=== PATIENT | female | born 1940 | race Caucasian/White ===

== ENCOUNTER → 2016-07-07 | Day surgery (SDC) | payer OTHER ==
[2016-06-23 13:24] VITALS: Ht 168.9 cm; Wt 63.6 kg
[~2016-07-07] VITALS: Ht 168.9 cm; Wt 63.6 kg
[~2016-07-07] MED LIST: ATOR10TA82 PO; EST5 PO; MEDR2.5T PO; MULT-506 PO; MXZC25 PO; PROPOFOL IV EMULSION 10 MG/ML 20 ML VIAL IV ONE; SODIUM CHLORIDE 0.9% 500ML 500 ML IV ONE
--- NOTE | 2016-07-07 14:00 | Endo History and Physical ---
History & Physical Date of Service: Jul 07, 2016. Chief Complaint: Family hx of colon CA - Father and niece Referring Physician: Dr Mehta History of Present Illness 76 yo CF who presents for colonoscopy secondary to family history of colon cancer. Past Surgical History Hx Cardiac Surgery: No Hx Internal Defibrillator: No Hx Pacemaker: No Hx Abdominal Surgery: Yes (TUBAL LIGATION) Hx of Implantable Prosthesis: No Hx Post-Op Nausea and Vomiting: No Hx Cancer Surgery: No Hx Thoracic Surgery: No Hx Orthopedic: No Hx Urinary Tract Surgery: No Family History Colon CA Social History Smoking Status: Former Smoker Hx Substance Use: No Hx Alcohol Use: No Allergies Coded Allergies: Codeine (Verified Allergy, Intermediate, HIVES, 07/07/16) Current Medications Reported Home Medications Medications Dose Route/Sig Max Daily Dose Days Date Category Multivitamin (Multivitamins) Tab 1 Tab PO QAM 06/23/16 Reported Lipitor (Atorvastatin Calcium) 10 Mg Tab 10 Mg PO HS 06/23/16 Reported Provera (Medroxyprogesterone Acetate) 2.5 Mg Tab 2.5 Mg PO QPM 06/23/16 Reported Triamterene/Hctz 37.5-25MG Tab (Triamterene/Hctz) 1 Tab Tab 1 Tab PO QAM 08/15/14 Reported Estradiol 0.5 Mg Tab 0.5 Mg PO QPM 08/15/14 Reported Vital Signs Weight (Kilograms): 63.64 Height (Feet): 5 Height (Inches): 6.5 Date Time Temp Pulse Resp B/P Pulse Ox O2 Delivery O2 Flow Rate FiO2 07/07/16 13:33 36.5 77 20 145/89 98 Room Air Physical Exam General Appearance: WD/WN, no apparent distress Respiratory/Chest: Auscultation: breath sounds normal Cardiovascular: Heart Auscultation: RRR Abdomen: Bowel Sounds: normal Inspection & Palpation: soft, non-distended, no tenderness, guarding & rebound Assessment and Plan Assessment: 76 yo CF who presents for colonoscopy secondary to family history of colon cancer. Plan: Proceed with colonoscopy.
--- NOTE | 2016-07-07 15:26 | Discharge Instructions ---
Endoscopy Patient Instructions Date / Procedure(s) Performed Jul 07, 2016. Colonoscopy Allergy Information Coded Allergies: Codeine (Verified Allergy, Intermediate, HIVES, 07/07/16) Discharge Date / Findings Jul 07, 2016. Diverticulosis Internal hemorrhoids Medication Instructions Stopped Medication(s): MULTIVITIAM OK to resume all medications today as prescribed Reported Home Medications Medications Dose Route/Sig Max Daily Dose Days Date Category Multivitamin (Multivitamins) Tab 1 Tab PO QAM 06/23/16 Reported Lipitor (Atorvastatin Calcium) 10 Mg Tab 10 Mg PO HS 06/23/16 Reported Provera (Medroxyprogesterone Acetate) 2.5 Mg Tab 2.5 Mg PO QPM 06/23/16 Reported Triamterene/Hctz 37.5-25MG Tab (Triamterene/Hctz) 1 Tab Tab 1 Tab PO QAM 08/15/14 Reported Estradiol 0.5 Mg Tab 0.5 Mg PO QPM 08/15/14 Reported Provider Instructions Activity Restrictions - No exercising or heavy lifting for 24 hours. - Do not drink alcohol the day of the procedure. - Do not drive a car or operate machinery until the day after the procedure. - Do not make any important decisions or sign important papers in 24 hours after the procedure. Following Day: - Return to full activity which may include returning to work/school. Diet Start your diet with liquids and light foods (jello, soup, juice, toast). Then eat your usual diet if not nauseated. Treatment For Common After Affects For mild abdominal pain, bloating, or excessive gas: - Rest - Eat lightly - Lie on right side Follow-Up Information Follow-up with Dr Mehta as scheduled Anesthesia Information What You Should Know You have had a procedure that required some medicine to reduce anxiety and discomfort. This treatment is called moderate sedation. After receiving the treatment, you may be sleepy, but you will be able to breathe on your own. The effects of the treatment may last for several hours. Follow these instructions along with Activity/Diet recommendations noted above: * Do NOT do anything where dizziness or clumsiness would be dangerous. * Rest quietly at home today, then you can be up and about tomorrow. * Have a responsible person stay with you the rest of today. * You may have had an I.V. today. If so, you may take the dressing off later today. Recommendations Call your doctor if: * Trouble breathing * Continuous vomiting for more than 24 hours * Temperature above 101 degrees * Severe abdominal pain or bloating * Pain not relieved by pain medicine ordered * There is increased drainage or redness from any incision * A large amount of rectal bleeding greater than 2-3 tablespoons. (If you had a polyp/s removed or have hemorrhoids, a small amount of blood - from the rectum is to be expected.) * You have any unanswered questions or concerns. IN THE EVENT OF A SERIOUS EMERGENCY, GO TO THE NEAREST EMERGENCY ROOM Your discharge instructions were prepared by provider Jose Alejandro Chapin. Patient Instructions Signature Page Lillian Zavala Patient (or Guardian) Signature/Date: I have read and understand the instructions given to me by my caregivers. Caregiver/RN/Doctor Signature/Date: The above-named patient and/or guardian has received patient instructions on this date. + Original Patient Signature Page (only) stays with chart. Please make copy for patient.
--- NOTE | 2016-07-07 15:31 | GI REPORT ---
Procedure Date: 07/07/2016 2:21 PM Procedure: Colonoscopy Indications: Family history of colon cancer in a first-degree relative Medicines: Monitored Anesthesia Care Complications: No immediate complications. Estimated Blood Loss: Estimated blood loss: none. Procedure: Pre-Anesthesia Assessment: - Prior to the procedure, a History and Physical was performed, and patient medications and allergies were reviewed. The patient's tolerance of previous anesthesia was also reviewed. The risks and benefits of the procedure and the sedation options and risks were discussed with the patient. All questions were answered, and informed consent was obtained. Prior Anticoagulants: The patient has taken no previous anticoagulant or antiplatelet agents. ASA Grade Assessment: II - A patient with mild systemic disease. After reviewing the risks and benefits, the patient was deemed in satisfactory condition to undergo the procedure. After I obtained informed consent, the scope was passed under direct vision. Throughout the procedure, the patient's blood pressure, pulse, and oxygen saturations were monitored continuously. The scope was introduced through the anus and advanced to the terminal ileum. The colonoscopy was performed without difficulty. The patient tolerated the procedure well. The quality of the bowel preparation was good. The terminal ileum, ileocecal valve, appendiceal orifice, and rectum were photographed. Findings: Multiple small-mouthed diverticula were found in the sigmoid colon. Non-bleeding internal hemorrhoids were found during retroflexion. The hemorrhoids were small. Impression: - Diverticulosis in the sigmoid colon. - Non-bleeding internal hemorrhoids. - No specimens collected. Recommendation: - Resume previous diet. - Continue present medications. - No repeat colonoscopy due to age and the absence of advanced adenomas. - Return to primary care physician as previously scheduled. Jose Alejandro Chapin, 07/07/2016 3:31:23 PM This report has been signed electronically. Note Initiated On: 07/07/2016 2:21 PM I attest to the content of the Intraoperative Record and orders documented therein, exceptions below
[2016-07-07 15:42] VITALS: BP 121/84; PULSE 75; O2SAT 96
--- NOTE | 2016-07-07 15:43 | Anesthesiology Progress Note ---
Anesthesia Post Op Note Date & Time Jul 07, 2016 at 15:42 Vital Signs Vital Signs Past 12 Hours Date Time Temp Pulse Resp B/P Pulse Ox O2 Delivery O2 Flow Rate FiO2 07/07/16 15:27 70 16 123/69 95 Room Air 07/07/16 15:12 76 16 102/84 94 Room Air 07/07/16 13:33 36.5 77 20 145/89 98 Room Air Notes Mental Status: alert / awake / arousable, participated in evaluation Pt Amnestic to Procedure: Yes Nausea / Vomiting: adequately controlled Pain: adequately controlled Airway Patency, RR, SpO2: stable & adequate BP & HR: stable & adequate Hydration State: stable & adequate Anesthetic Complications: no major complications apparent
== END | disposition home or self-care (01) ==
LOC: C.GI 12:55
PROVIDERS: ATTEND Internal Medicine
DX: Z12.11 Encounter for screening for malignant neoplasm of colon (principal); K57.30 Diverticulosis of large intestine without perforation or abscess without bleeding; K64.8 Other hemorrhoids; Z80.0 Family history of malignant neoplasm of digestive organs

== ENCOUNTER → 2016-10-25 | Outpatient (CLI) | payer OTHER ==
[~2016-10-25] MED LIST changes: -ATOR10TA82 PO; +ATOR10TA88 PO; -PROPOFOL IV EMULSION 10 MG/ML 20 ML VIAL IV ONE; -SODIUM CHLORIDE 0.9% 500ML 500 ML IV ONE
[2016-10-25 12:45] LABS: BLOOD UREA NITROGEN 15 mg/dl (7-18); CREATININE 0.86 mg/dl (0.60-1.20)
== END | disposition home or self-care (01) ==
LOC: C.LABBFT 07:39
PROVIDERS: ATTEND Nurse Practitioner
DX: K04.7 Periapical abscess without sinus (principal)

== ENCOUNTER → 2017-03-23 | Outpatient (CLI) | payer OTHER ==
[~2017-03-23] MED LIST changes: +ATOR10TA82 PO; -ATOR10TA88 PO
== END | disposition home or self-care (01) ==
LOC: C.PAPS 08:58
PROVIDERS: ATTEND Obstetrics & Gynecology
DX: Z12.4 Encounter for screening for malignant neoplasm of cervix (principal); Z78.0 Asymptomatic menopausal state

== ENCOUNTER → 2017-03-31 | Outpatient (CLI) | payer OTHER ==
--- NOTE | 2017-04-07 07:48 | MAMMOGRAPHY REPORT ---
BILATERAL DIGITAL DIAGNOSTIC MAMMOGRAM TOMOSYNTHESIS WITH CAD AND TARGETED RIGHT ULTRASOUND: 03/31/20 17 CLINICAL HISTORY: The patient reported that her doctor felt a palpable lump in the right breast alana g a clinical exam. TECHNIQUE: Breast tomosynthesis in addition to standard 2D mammography was performed. Current study was also evaluated with a Computer Aided Detection (CAD) system. Bilateral CC and MLO 2-D and tomosy nthesis images were obtained. COMPARISON: Comparison is made to exams dated: 02/01/2013 mammogram and 08/31/2010 mammogram - [facility]. BREAST COMPOSITION: The tissue of both breasts is heterogeneously dense, which may obscure small mas ses. FINDINGS: A triangle marker maravilla the site of the palpable lump in the right central/12:00 breast. At the site of the palpable lump there is an ill-defined focal asymmetry with associated coarse heter ogeneous calcifications. The area is ill-defined and therefore difficult to measure but measures at least 3.6 x 2.8 cm on the cc view. The remainder of both breasts demonstrate no suspicious masses, calcifications, or areas of back end architect ural distortion. Targeted ultrasound was performed of the area of the palpable lump pointed out by the patient, in the right breast at 12:00. In the right breast at 12:00, extending from the periareolar breast to 3 cm from the nipple, there is an ill-defined hypoechoic mass with non-circumscribed margins. The area is ill-defined and therefore difficult to measure but measures at least 2.4 x 1.7 x 3.9 cm. This corre sponds with the mammographic asymmetry and associated calcifications and is highly suspicious. Targeted ultrasound was performed of the right axilla. Multiple morphologically normal right axillar y lymph nodes are seen which contain normal fatty lexus and thin peripheral cortices. There is a roun d hypoechoic 3 x 3 mm mass within the lower right axilla, which does not contain a fatty hilum and is indeterminate for a hoda metastasis. IMPRESSION: ACR BI-RADS CATEGORY 5: HIGHLY SUGGESTIVE OF MALIGNANCY, TARGETED ULTRASOUND ACR BI-RADS CATEGORY 5: HIGHLY SUGGESTIVE OF MALIGNANCY 1. At the site of the palpable lump in the right 12:00 breast, there is an ill-defined focal asymmet ry with associated coarse heterogeneous calcifications mammographically which measures up to 3.6 x 2. 8 cm. A corresponding ill-defined hypoechoic mass is seen on ultrasound. Findings are highly suspic ious and ultrasound-guided core needle biopsy is recommended for further evaluation. 2. Morphologically abnormal lymph node in the right axillary region measuring 3 mm. Recommend ultra sound-guided biopsy for further evaluation. 3. No mammographic evidence of malignancy in the left breast. A phone call was made to the physician's office to confirm faxed results were received. The patient has been verbally notified of the results. She tentatively scheduled the biopsies before leaving the department. The patient should discontinue her baby aspirin for 5-7 days prior to the procedure. Approximately 10% of breast cancers are not detected with mammography. A negative mammographic report should not delay biopsy if a clinically suggestive mass is present. Lindsey Cope M.D. ah/:03/31/2017 12:01:48 Voting Machine Repairer: Joseph CAMACHO(Darshan)(M), [facility] letter sent: Abnormal 4/5 BI-RADS Code: ACR BI-RADS Category 5: Highly Suggestive Of Malignancy Ultrasound BI-RADS: ACR BI-RAD S Category 5: Highly Suggestive Of Malignancy
== END | disposition home or self-care (01) ==
LOC: C.MAMM 10:57
PROVIDERS: ATTEND Obstetrics & Gynecology
DX: N63.12 Unspecified lump in the right breast, upper inner quadrant (principal); N64.89 Other specified disorders of breast; R92.1 Mammographic calcification found on diagnostic imaging of breast

== ENCOUNTER → 2017-04-07 | Outpatient (CLI) | payer OTHER ==
--- NOTE | 2017-04-07 11:04 | Discharge Instructions ---
Discharge Instructions Procedure Procedure Date: Apr 07, 2017. Reason for visit: Right Mass, R Axillary Lymph. Discharge Discharge Date: Apr 07, 2017. Discharge Diagnosis: status post breast biopsy Instructions Activity Recommendations: Additional Limitations (see below) Return to School/Work: no limitations Recommended Home Diet: No Limitations Provider Instructions: ACTIVITY RECOMMENDATIONS: * No lifting, pushing, pulling or exercising the affected side for three days. RETURN TO SCHOOL/WORK: * You may return to work/school after the procedure, but do not perform any strenuous activities for 24 to 48 hours. MEDICATIONS: * Tylenol (two 325 mg) every four to six hours if needed for mild pain (if not allergic to Tylenol). DIET: * Resume previous diet. SPECIAL CARE INSTRUCTIONS: * Keep biopsy site dry for 24 hours. May shower after 24 hours, but do not soak (bathe) incision. * May remove Tegaderm (plastic patch) tomorrow AFTER showering. * Leave the steri-strips on for one week. Allow the steri-strips to fall off by themselves. If not off after one week, you may remove them. You may place a Bandaid crosswise over the strips, if desired. * Apply ice 10 minutes on and 10 minutes off as needed. * Wear a bra at bedtime to sleep more comfortably for 2-3 days. * Your referring physician should have the results after approximately 5 to 7 business days. * Call for unusual bleeding, fever, drainage, etc or if you have any questions call during normal business hours or after hours call Dr Cope, . FOLLOW UP VISIT: Follow-up with Referring Physician as scheduled. Allergies Coded Allergies: Codeine (Verified Allergy, Intermediate, HIVES, 07/07/16) [facility] Recommendations: Call your doctor if: * Temperature above 101 degrees * Pain not relieved by pain medicine ordered * There is increased drainage or redness from any incision * You have any unanswered questions or concerns. Your Doctors Instructions noted above were prepared by provider Lindsey Cope. Patient Signature Section: Patient Instructions Signature Page Lillian Zavala Patient (or Guardian) Signature/Date: I have read and understand the instructions given to me by my caregivers. Caregiver/RN/Doctor Signature/Date: The above-named patient and/or guardian has received patient instructions on this date. + Original Patient Signature Page (only) stays with chart. Please make copy for patient.
--- NOTE | 2017-04-07 14:34 | MAMMOGRAPHY REPORT ---
ULTRASOUND GUIDED BIOPSY RIGHT BREAST: 04/07/2017 CLINICAL HISTORY: Morphologically abnormal right axillary lymph node. PATIENT CONSENT: The procedure, risks and benefits were discussed with the patient and informed writt en consent was obtained. A timeout was performed immediately prior to the procedure. PROCEDURE DESCRIPTION: With ultrasound guidance, aseptic technique, and lidocaine as the local anesth etic (1% lidocaine to anesthetize the skin and 1% lidocaine with epinephrine to anesthetize the deepe r tissues), the right axillary lymph node of concern was sampled 3 times with a 14-gauge achieve biop sy needle. Immediately thereafter, with ultrasound guidance, aseptic technique, and lidocaine as t he local anesthetic, a metallic localizer clip (wing-shaped) was placed at the biopsy site. Direct p ressure was applied to the site immediately post procedure and hemostasis was achieved. Postprocedur e unilateral mammograms were performed to confirm clip placement. The patient tolerated the procedure without complication. She was given wound care instructions. The specimens were sent to pathology f or analysis. COMPARISON: Comparison is made to exams dated: 04/07/2017 mammogram, 04/07/2017 ultrasound biopsy, 03/31 mammogram, 03/31/2017 ultrasound, and 02/01/2013 mammogram - [facility]. IMPRESSION: ULTRASOUND GUIDED BIOPSY Ultrasound guided core needle biopsy of the right axillary lymph node, with clip placement. The anup ent will receive pathology results from her referring provider. Lindsey Cope M.D. /:04/07/2017 11:09:36 Rotary Shear Operator: Saloni RUIZ)(Aubree), [facility]
--- NOTE | 2017-04-07 14:34 | MAMMOGRAPHY REPORT ---
ULTRASOUND GUIDED BIOPSY RIGHT BREAST: 04/07/2017 CLINICAL HISTORY: Suspicious mass and associated calcifications in the right 12:00 breast. PATIENT CONSENT: The procedure, risks and benefits were discussed with the patient and informed writt en consent was obtained. A timeout was performed immediately prior to the procedure. PROCEDURE DESCRIPTION: With ultrasound guidance, aseptic technique, and lidocaine as the local anesth etic (1% lidocaine to anesthetize the skin and 1% lidocaine with epinephrine to anesthetize the deepe r tissues), the mass of concern in the right 12:00 breast was sampled 4 times with a 14-gauge Achieve biopsy needle. Immediately thereafter, with ultrasound guidance, aseptic technique, and lidocaine as the local anesthetic, a metallic localizer clip was placed into the mass. Direct pressure was bashir lied to the site immediately post procedure and hemostasis was achieved. Postprocedure unilateral ma mmograms were performed to confirm placement of the clip in the expected location of the breast mass. The patient tolerated the procedure without complication. She was given wound care instructions. T he specimens were sent to pathology for analysis. COMPARISON: Comparison is made to exams dated: 03/31/2017 mammogram, 03/31/2017 ultrasound, 3 mammogram, 08/31/2010 mammogram - [facility], and 10/10/2006. IMPRESSION: ULTRASOUND GUIDED BIOPSY Ultrasound guided core needle biopsy of the right 12:00 breast mass, with clip placement. The patien t will receive pathology results from her referring provider. Lindsey Cope M.D. ah/:04/07/2017 11:07:46 Cage Supervisor: Saloni RUIZ)(Aubree), [facility]
--- NOTE | 2017-04-07 14:38 | MAMMOGRAPHY REPORT ---
UNILATERAL RIGHT DIGITAL DIAGNOSTIC MAMMOGRAM TOMOSYNTHESIS: 04/07/2017 CLINICAL HISTORY: Status post right breast and axillary biopsies. TECHNIQUE: Breast tomosynthesis in addition to standard 2D mammography was performed. Postprocedura l right CC and ML tomosynthesis images including C views were obtained. COMPARISON: Comparison is made to exams dated: 04/07/2017 ultrasound biopsy, 03/31/2017 mammogram, ultrasound, 02/01/2013 mammogram, and 08/31/2010 mammogram - [facility]. BREAST COMPOSITION: The tissue of the right breast is heterogeneously dense, which may obscure small masses. FINDINGS: A new ribbon-shaped biopsy marker clip is seen within the biopsied mass and associated luis e cifications in the right 12:00 breast. A wing-shaped biopsy marker clip is visualized in the right s uperior posterior breast on the MLO view at the site of the biopsied right axillary lymph node. No s ignificant postbiopsy hematoma is seen. IMPRESSION: POST PROCEDURE IMAGING FOR MARKER PLACEMENT New biopsy marker clips status post ultrasound-guided biopsy of the right 12:00 breast mass and right axillary lymph node. Pathology results are pending. Approximately 10% of breast cancers are not detected with mammography. A negative mammographic report should not delay biopsy if a clinically suggestive mass is present. Lindsey Cope M.D. ah/:04/07/2017 11:22:12 Senior Mechanical Technician: Saloni RUIZ)(Aubree), [facility] BI-RADS Code: Post Procedure Imaging For Marker Placement
== END | disposition home or self-care (01) ==
LOC: C.MAMM 10:27
PROVIDERS: ATTEND Obstetrics & Gynecology
DX: D05.11 Intraductal carcinoma in situ of right breast (principal); C77.3 Secondary and unspecified malignant neoplasm of axilla and upper limb lymph nodes

== ENCOUNTER → 2017-07-12 | Outpatient (CLI) | payer OTHER ==
[~2017-07-12] MED LIST changes: +ASCA500 PO; +B-COTAB18 PO; +CHOL1000 PO; +FLV400 PO; +PYRI100T4 PO; +ZINC PO
== END | disposition home or self-care (01) ==
LOC: C.CPL 15:45
PROVIDERS: ATTEND Surgery
DX: Z01.818 Encounter for other preprocedural examination (principal); C50.911 Malignant neoplasm of unspecified site of right female breast

== ENCOUNTER 2017-07-18 06:31 | Day surgery (SDC) | payer OTHER ==
[2017-07-14 08:48] VITALS: BMI 21.0
[~2017-07-18] VITALS: Ht 167.6 cm; Wt 61.0 kg
[~2017-07-18 06:31] MED LIST changes: +CLINDAMYCIN 600 MG/54 ML D5W IV SCH; -EST5 PO; +LACTATED RINGER'S 1000ML 1,000 ML IV SCH; -MEDR2.5T PO
[2017-07-18] MEDS ORDERED: ACETAMINOPHEN 1000 MG/100 ML IV IV ONE (06:51)
[2017-07-18 06:57] VITALS: BP 147/80; PULSE 69; TEMP 36.7; O2SAT 96; Ht 167.6 cm; Wt 61.0 kg
[2017-07-18] MEDS ORDERED: PROPOFOL IV EMULSION 10 MG/ML 20 ML VIAL IV ONE (07:46)
[2017-07-18] MEDS ORDERED: LIDOCAINE HCL 2% 2 ML VIAL (20MG/ML) ONE (07:46)
[2017-07-18] MEDS ORDERED: FENTANYL CITRATE INJ 50 MCG/1 ML 2 ML VIAL ONE (07:46)
[2017-07-18] MEDS ORDERED: HEPARIN SOD (PORCINE) 1000 UNIT/ML 10 ML VIAL ONE (08:14)
[2017-07-18] MEDS ORDERED: BUPIVACAINE/EPINEPHRINE 0.5% MPF 1:200,000 30 ML VIAL ONE (08:14)
--- NOTE | 2017-07-18 08:16 | History & Physical Bridge Note ---
H&P Re-Evaluation Bridge Note: I have examined the patient, reviewed the History & Physical and in the interval since the performance of the History & Physical I have noted the following changes of clinical significance: No changes noted
[2017-07-18] MEDS ORDERED: ATROPINE SULFATE 0.1 MG/ML 5ML SYR IV PRN (08:30)
[2017-07-18] MEDS ORDERED: EpHEDrine SULFATE INJ 50 MG/ML AMP IV PRN (08:30)
[2017-07-18] MEDS ORDERED: ONDANSETRON INJ 2 MG/ML 2 ML VIAL IV PRN (08:30)
[2017-07-18] MEDS ORDERED: FENTANYL CITRATE INJ 50 MCG/1 ML 2 ML VIAL IV PRN (08:30)
[2017-07-18] MEDS ORDERED: MIDAZOLAM HCL 1 MG/ML 2ML VIAL ONE (08:32)
[2017-07-18] MEDS ORDERED: ONDANSETRON INJ 2 MG/ML 2 ML VIAL ONE (08:37)
--- NOTE | 2017-07-18 09:05 | [facility] Post Operative Brief Note ---
Immediate Operative Summary Operative Date Jul 18, 2017. Pre-Operative Diagnosis port placement needed for chemotherapy Post-Operative Diagnosis port placement needed for chemotherapy Procedure(s) Performed Insertion of Mediport, Left Subclavian Vein Surgeon Dr. Josep Carbone Horse Shoer Surgeon(s) None Estimated Blood Loss 5ML Findings Consistent with Post-Op Diagnosis Specimens no specimens per surgeon Anesthesia Type MAC
--- NOTE | 2017-07-18 09:10 | Discharge Instructions ---
Discharge Instructions Date of Service Jul 18, 2017. Admission Reason for Admission: Breast Cancer Discharge Discharge Diagnosis / Problem: Breast Cancer Discharge Goals Goal(s): Decrease discomfort, Improve function Activity Recommendations Activity Limitations: as noted below Lifting Limitations: no more than 10 pounds Exercise/Sports Limitations: gradually increase as tolerated May Resume Sexual Activity: when tolerated Shower/Bathe: tomorrow Driving or Machine Use: resume 1 day after discharge . Instructions / Follow-Up Instructions / Follow-Up You have surgical glue, Dermabond, over your incision. You may shower tomorrow , but do not soak or scrub your incisions. For pain control, you may take Acetaminophen (Tylenol). You may take 2 regular strength Tylenol every 4-6 hours as needed for pain. Do not exceed more than 10 tablets in a 24 hr period. Please call the General Surgery Clinic at [phone] with any questions or concerns. Current Hospital Diet Patient's current hospital diet: Discharge Diet Recommended Diet: Regular Diet Procedures Procedures Performed: Insertion of Mediport, Left Subclavian Vein Pending Studies Studies pending at discharge: no Medical Emergencies . Who to Call and When: Medical Emergencies: If at any time you feel your situation is an emergency, please call 911 immediately. . Non-Emergent Contact Non-Emergency issues call your: Primary Care Provider, Surgeon Call Non-Emergent contact if: temperature is above 101.5, your pain is not controlled, wound has increased drainage, wound has increased redness . "Provider Documentation" section prepared by Lala Haney. .
[2017-07-18] MEDS ORDERED: SODIUM CHLORIDE 0.9% 1000ML 1,000 ML IV SCH (09:17)
--- NOTE | 2017-07-18 09:20 | [facility] Operative Report ---
Operative Report Operative Date Jul 18, 2017. Pre-Operative Diagnosis port placement needed for chemotherapy Post-Operative Diagnosis port placement needed for chemotherapy Procedure(s) Performed Insertion of Mediport, Left Subclavian Vein Surgeon Dr. Josep Carbone Solderer Furnace Surgeon(s) None Estimated Blood Loss 5ML Specimens no specimens per surgeon Anesthesia Type MAC Description of Procedure After informed consent was obtained the patient was taken the operating room placed in supine position. IV sedation was administered by anesthesia and titrated to effect. The left arm was then tucked and a rolled towel was placed between his shoulder blades. The upper chest area was sterilely prepped and draped in usual fashion. I used Marcaine with epinephrine to localize the skin just below the angle of the clavicle. I also used Marcaine to localize the periosteum of the clavicle. We then used a 15 blade scalpel to make a horizontal incision. I carried this down through the soft tissue using electrocautery to the pectoralis fascia. I then used blunt finger dissection to create a small pocket. I then used an 18-gauge finder needle to access the subclavian vein without difficulty. A guidewire was advanced under fluoroscopy into the superior vena cava. We then measured and cut the catheter to appropriate size and then thoroughly flushed the entire system with a heparin solution. Next we advanced a vascular dilator with peel-away sheath over the guidewire again using fluoroscopy. We then pulled out the dilator as well as the guidewire leaving the peel-away sheath in place. The catheter was advanced through the peel-away sheath and the port itself was placed into the housing pocket. We then peeled the sheath away leaving the catheter. We verified position using fluoroscopy. The catheter was then flushed with heparin solution. It withdrew dark venous blood easily. The port was then secured to the muscle using 0 Ethibond with 3 point fixation. The wound was thoroughly irrigated and closed in 2 layers using 3-0 Monocryl for both layers. A sterile dressing was applied. The patient was awakened and transferred to recovery in stable condition. A postoperative portable chest x-ray is currently pending to rule out pneumothorax and the verify catheter position. I attest to the content of the Intraoperative Record and any orders documented therein. Any exceptions are noted below. I attest to the content of the Intraoperative Record and any orders documented therein. Any exceptions are noted below.
[2017-07-18] MEDS ORDERED: M IV PRN (09:30)
--- NOTE | 2017-07-18 09:48 | Anesthesiology Progress Note ---
Anesthesia Post Op Note Date & Time Jul 18, 2017 at 09:48 Vital Signs Pain Intensity: 0 Vital Signs Past 12 Hours Date Time Temp Pulse Resp B/P (MAP) Pulse Ox O2 Delivery O2 Flow Rate FiO2 07/18/17 09:41 110/72 07/18/17 09:37 64 17 93 07/18/17 09:37 64 17 07/18/17 09:36 116/70 07/18/17 09:33 36.2 64 23 116/70 (79) 94 Room Air 07/18/17 09:32 66 19 07/18/17 09:32 66 19 94 07/18/17 09:31 120/72 07/18/17 09:27 66 18 07/18/17 09:27 66 18 94 07/18/17 09:26 113/75 07/18/17 09:25 65 3 94 07/18/17 09:25 65 3 07/18/17 09:25 65 3 94 07/18/17 09:25 65 3 07/18/17 09:21 116/76 07/18/17 09:21 116/76 07/18/17 09:20 69 16 07/18/17 09:20 69 16 94 07/18/17 09:20 69 16 94 07/18/17 09:20 69 16 07/18/17 09:16 106/74 07/18/17 09:16 106/74 07/18/17 09:15 68 14 96 07/18/17 09:15 68 14 07/18/17 09:15 68 14 96 07/18/17 09:15 68 14 07/18/17 09:10 71 12 108/72 98 07/18/17 09:10 71 12 07/18/17 09:10 36.2 71 16 108/72 (82) 99 Room Air 07/18/17 09:10 71 12 108/72 98 07/18/17 09:10 71 12 07/18/17 06:57 36.7 69 20 147/80 (102) 96 Room Air Notes Mental Status: alert / awake / arousable, participated in evaluation Pt Amnestic to Procedure: Yes Nausea / Vomiting: adequately controlled Pain: adequately controlled Airway Patency, RR, SpO2: stable & adequate BP & HR: stable & adequate Hydration State: stable & adequate Anesthetic Complications: no major complications apparent
--- NOTE | 2017-07-18 10:02 | DIAGNOSTIC IMAGING REPORT ---
CHEST ONE VIEW PORTABLE HISTORY: s/p port placement; Pt in PACU COMPARISON: None. FINDINGS: Left subclavian Port-A-Cath terminates in the expected location of the SVC. This is slightly curved medially at the tip. No pneumothorax. No pleural effusions. There is an 11 mm nodule within the right midlung zone. Mild diffuse interstitial thickening which is likely chronic. The heart is mildly enlarged. Dextroscoliosis of the thoracolumbar spine. A few linear scarlike densities within the left lung base. IMPRESSION: 1. Left subclavian Port-A-Cath. The tip is curved immediately but likely resides within the SVC. No pneumothorax. 2. An 11 mm nodule within the right midlung zone. If not already performed, a follow-up chest CT is recommended for further evaluation. 3. These findings were called/faxed to the referring physician following dictation. Electronically signed by: Silver Beyer M.D. 07/18/2017 10:00 AM Dictated Date/Time: 07/18/2017 9:58 AM
[2017-07-18 10:50] VITALS: BP 110/74; PULSE 72; TEMP 37.2; O2SAT 94
== END 2017-07-18 11:10 | disposition home or self-care (01) ==
LOC: C.ACU 06:31
PROVIDERS: ATTEND Surgery
DX: N63.0 Unspecified lump in unspecified breast (principal); F41.9 Anxiety disorder, unspecified; E78.5 Hyperlipidemia, unspecified; I10 Essential (primary) hypertension; K21.9 Gastro-esophageal reflux disease without esophagitis; M85.80 Other specified disorders of bone density and structure, unspecified site; M19.90 Unspecified osteoarthritis, unspecified site; Z86.19 Personal history of other infectious and parasitic diseases; Z90.89 Acquired absence of other organs; Z98.49 Cataract extraction status, unspecified eye; Z82.49 Family history of ischemic heart disease and other diseases of the circulatory system; Z80.0 Family history of malignant neoplasm of digestive organs; Z88.5 Allergy status to narcotic agent; Z88.1 Allergy status to other antibiotic agents; Z88.6 Allergy status to analgesic agent; Z85.3 Personal history of malignant neoplasm of breast; Z87.891 Personal history of nicotine dependence

== ENCOUNTER → 2017-10-25 | Outpatient (CLI) | payer OTHER ==
[~2017-10-25] MED LIST changes: -ATOR10TA82 PO; -CLINDAMYCIN 600 MG/54 ML D5W IV SCH; -LACTATED RINGER'S 1000ML 1,000 ML IV SCH; +MAGNTAB17 PO; -MULT-506 PO; +ONDA-170 PO; +PROC10TA PO; -PYRI100T4 PO
[2017-10-25 17:37] LABS: BASO % 0.9 %; BASO ABS # 0.05 K/uL (0-0.2); EOS % 9.6 %; EOS ABS # 0.54 K/uL (0-0.5); HEMATOCRIT 38.2 % (37-47); HEMOGLOBIN 12.6 g/dL (12.0-16.0); IG# 0.01 K/uL (0.00-0.02); LYMPH % 22.2 %; LYMPH ABS # 1.25 K/uL (1.2-3.4); MEAN CELL VOLUME 88.8 fL (80-100); MEAN CORPUSCULAR HEMOGLOBIN 29.3 pg (25-34); MEAN PLATELET VOLUME 9.4 fL (7.4-10.4); MONO % 3.4 %; MONO ABS # 0.19 K/uL (0.11-0.59); NEUT % 63.7 %; PLATELET COUNT 193 K/uL (130-400); RED CELL DISTRIBUTION WIDTH CV 15.9 % (11.5-14.5); RED CELL DISTRIBUTION WIDTH SD 51.3 fL (36.4-46.3); WHITE BLOOD COUNT 5.64 K/uL (4.8-10.8)
[2017-10-25 17:46] LABS: ALBUMIN 3.6 gm/dl (3.4-5.0); ALKALINE PHOSPHATASE 41 U/L (45-117); ALT/SGPT 25 U/L (12-78); AST/SGOT 20 U/L (15-37); BLOOD UREA NITROGEN 28 mg/dl (7-18); CALCIUM 9.5 mg/dl (8.5-10.1); CARBON DIOXIDE 28 mmol/L (21-32); CREATININE 0.82 mg/dl (0.60-1.20); GLUCOSE 97 mg/dl (70-99); POTASSIUM 4.2 mmol/L (3.5-5.1); SODIUM 141 mmol/L (136-145); TOTAL PROTEIN 7.3 gm/dl (6.4-8.2)
== END | disposition home or self-care (01) ==
LOC: C.LABBFT 13:41
PROVIDERS: ATTEND Internal Medicine Hematology & Oncology
DX: C50.111 Malignant neoplasm of central portion of right female breast (principal)

== ENCOUNTER 2023-06-19 06:25 | Observation (INO) ==
--- NOTE | 2023-05-16 15:40 | PAT Medication Instructions ---
Medication Instructions Date of Service May 16, 2023 Home Medications ascorbic acid (vitamin C) 500 mg capsule,extended release (Vitamin C) 500 mg PO QAM cholecalciferol (vitamin D3) 50 mcg (2,000 unit) tablet (Vitamin D3) 2,000 unit PO QAM cyanocobalamin (vitamin B-12) 1,000 mcg tablet 1,000 mcg PO QAM folic acid 400 mcg tablet 0.4 mg PO QAM aspirin 81 mg tablet,delayed release (Adult Low Dose Aspirin) 81 mg PO QAM calcium carbonate 300 mg (750 mg) chewable tablet 300 mg PO QAM acetaminophen 325 mg tablet 325 mg PO QID PRN Pain ibuprofen 200 mg tablet 200 mg PO Q6H PRN Pain levothyroxine 50 mcg tablet 50 mcg PO QAM magnesium 500 mg tablet 500 mg PO QAM tamoxifen 20 mg tablet 20 mg PO QPM triamterene 37.5 mg-hydrochlorothiazide 25 mg tablet 1 tab PO QAM ASK your surgeon for instructions ibuprofen 200 mg tablet 200 mg PO Q6H PRN Pain ASK your prescriber and surgeon tamoxifen 20 mg tablet 20 mg PO QPM DO NOT take the morning of surgery ascorbic acid (vitamin C) 500 mg capsule,extended release (Vitamin C) 500 mg PO QAM cholecalciferol (vitamin D3) 50 mcg (2,000 unit) tablet (Vitamin D3) 2,000 unit PO QAM cyanocobalamin (vitamin B-12) 1,000 mcg tablet 1,000 mcg PO QAM folic acid 400 mcg tablet 0.4 mg PO QAM calcium carbonate 300 mg (750 mg) chewable tablet 300 mg PO QAM magnesium 500 mg tablet 500 mg PO QAM triamterene 37.5 mg-hydrochlorothiazide 25 mg tablet 1 tab PO QAM Take morning of surgery With a small sip of water, OTHERWISE NOTHING TO EAT OR DRINK AFTER MIDNIGHT: aspirin 81 mg tablet,delayed release (Adult Low Dose Aspirin) 81 mg PO QAM (unless surgeon directed otherwise) acetaminophen 325 mg tablet 325 mg PO QID PRN Pain (if needed) levothyroxine 50 mcg tablet 50 mcg PO QAM Take evening before surgery acetaminophen 325 mg tablet 325 mg PO QID PRN Pain (if needed) Other Notes If you have any questions please call us at [phone] or [phone] or [phone] or [phone]
--- NOTE | 2023-05-23 13:44 | Anesthesiology Consultation ---
Date of Service May 23, 2023 Assessment & Plan (1) Encounter for pre-operative examination: Chart Review Chart Review: Acceptable Risk for Surgery and Patient seen in Pre Admission Testing Upon review of chart and discussion with Dr. Collins- patient is an acceptable candidate for [facility] from anesthesia perspective. Patient is motivated, has good support; pending surgeon's office completes [facility] preop requirements- patient may proceed with outpatient TSA. Per PAT appt on 05/23/23, no recent illness/disease exposures, illness related symptoms, or recent illness/disease positive tests. Will leave to surgeon's discretion if preop Covid testing needed Teaching & Discussion Pre-Anesthesia Teaching/Discussion Notes: Instructed NPO after midnight before surgery,except medications with 15 cc of water. Medication instructions provided according to the PAT guidelines. History Surgery Operation Date: 06/19/23 10:20 Proposed Procedures p OP: Left Reverse Total Shoulder Arthroplasty - Bharath Sneed DO Height/Weight Height: 5 ft 6 in Weight: 58.6 kg Allergies Allergy/AdvReac Type Severity Reaction Status Date / Time amoxicillin [From Augmentin] Allergy Intermediate Abdominal Verified 05/16/23 14:17 pain, diarrhea, nausea clavulanic acid Allergy Intermediate Abdominal Verified 05/16/23 14:17 [From Augmentin] pain, diarrhea, nausea codeine Allergy Intermediate Hives Verified 05/16/23 14:17 amitriptyline [From Elavil] AdvReac Mild Fatigue Verified 05/16/23 14:17 atorvastatin AdvReac Mild Myalgia Verified 05/16/23 14:17 Medications Home Medications Medication Instructions Recorded Confirmed Last Taken ascorbic acid (vitamin C) 500 mg 500 mg PO QAM 03/05/18 05/16/23 03/15/18 capsule,extended release (Vitamin C) cholecalciferol (vitamin D3) 50 2,000 unit PO QAM 03/05/18 05/16/23 03/15/18 mcg (2,000 unit) tablet (Vitamin D3) cyanocobalamin (vitamin B-12) 1,000 mcg PO QAM 03/05/18 05/16/23 03/15/18 1,000 mcg tablet folic acid 400 mcg tablet 0.4 mg PO QAM 03/05/18 05/16/23 03/15/18 aspirin 81 mg tablet,delayed 81 mg PO QAM 08/12/19 05/16/23 Unknown release (Adult Low Dose Aspirin) calcium carbonate 300 mg (750 mg) 300 mg PO QAM 12/01/22 05/16/23 Unknown chewable tablet acetaminophen 325 mg tablet 325 mg PO QID PRN Pain 05/16/23 05/16/23 Unknown ibuprofen 200 mg tablet 200 mg PO Q6H PRN Pain 05/16/23 05/16/23 Unknown levothyroxine 50 mcg tablet 50 mcg PO QAM 05/16/23 05/16/23 Unknown magnesium 500 mg tablet 500 mg PO QAM 05/16/23 05/16/23 Unknown tamoxifen 20 mg tablet 20 mg PO QPM 05/16/23 05/16/23 Unknown triamterene 37.5 1 tab PO QAM 05/16/23 05/16/23 Unknown mg-hydrochlorothiazide 25 mg tablet Past Medical History Medical History Diverticulosis no hx of diverticulitis History of compression fracture of spine T12- occurred around 2015 conservative treatment only HX: breast cancer Hx- Right breast cancer 2017 (radiation/chemo) Hyperlipidemia Hypertension Hypothyroidism Osteoarthritis Peripheral neuropathy Exercise / Class Metabolic Activity II 4-5 Yardwork/Stairs/Walk up hill (one flight of stairs - no chest pain or SOB ) Past Family History Family History Father Family hx of colon cancer Cardiac disorder Myocardial infarction Colorectal cancer Mother Hypertension Son Thyroid cancer Other No family history of adverse response to anesthesia Denies family history of Ovarian cancer Prostate cancer Breast cancer Past Surgical History Surgical History H/O vaginal surgery A&P repair, [place]. [place] [facility] [place] History of bilateral tubal ligation History of cataract surgery rt/left History of colonoscopy History of dilatation and curettage History of tonsillectomy and adenoidectomy History of tooth extraction History of vascular access device removed Hx of foot surgery Left foot toe surgery Hx of lumpectomy Right Status post lymph node biopsy 04/2017 Past Anesthesia History No Hx of Anesthesia Complications and No Family Hx of Anesthesia Complications History of PONV No Hx of PONV and No Hx of Motion Sickness Social History Smoking Status: Former smoker Smoking cigarettes per day: QUIT 50 + YEARS AGO Do You Dip or Chew Tobacco: No Hx Alcohol Use: Yes Alcohol type: wine alcohol intake frequency: holidays/special occasions only substance use type: does not use Review of Systems Patient denies chest pain, shortness of breath, dyspnea on exertion, reflux, cough, wheezing, palpitations. No hx of seizures, stroke, NE, apnea/snoring. No hx of blood clots or blood transfusions Physical Exam Vital Signs VITALS BP 120/76 P 73 TEMP 98.1 SP02 94% RESP 16 Constitutional no acute distress ENMT Mouth: no TMJ clicking Thyromental Distance: > or= 3.5 Finger Breadths (4.0) Mallampati Class: I Partial denture on top Right top front and bottom left side permanent implants Caps/crowns to possibly to front teeth/side teeth/molars Neck neck extension not limited Respiratory normal respiratory effort; no respiratory distress Auscultation: lungs clear to auscultation bilaterally; no wheezes Cardiovascular Rate/Rhythm: regular rate and regular rhythm Heart Sounds: no murmur Vessels: no carotid bruit Musculoskeletal Spine: no pain with cervical ROM Extremities: extremities normal to inspection Psychiatric Orientation: alert Lab Results Anesthesia Preop Results Results Anesthesia Widget: WBC 5.40 K/ul (4.8-10.8) 05/23/23 Hgb 12.8 g/dl (12.0-16.0) 05/23/23 Hct 38.4 % (37.0-47.0) 05/23/23 Plt 198 K/uL (130-400) 05/23/23 Na 139 mmol/L (136-145) 05/23/23 K 3.9 mmol/L (3.5-5.1) 05/23/23 Cl 104 mmol/L (98-107) 05/23/23 CO2 28 mmol/L (21-32) 05/23/23 BUN 24 mg/dl (6-23) H 05/23/23 Creat 0.87 mg/dl (0.6-1.2) 05/23/23 Glucose Level 91 mg/dl (70-99(Fasting)) 05/23/23 PT 10.4 Seconds (9.0-12.0) 05/23/23 PTT 24 Seconds (21-31) 05/23/23 INR 0.9 (0.9-1.1) 05/23/23 Blood Type B Negative 05/23/23 Antibody Screen NEGATIVE 05/23/23 Testing Electrocardiogram Date: 05/23/23 Findings: + NSR @ (72bpm ) Left axis deviation Incomplete RBBB Chest X-Ray Date: 05/23/23 FINDINGS: No pneumothorax. No pleural effusions. The cardiac silhouette is top normal in size. Small left basilar linear densities favor subsegmental atelectasis are scarring. No focal lung consolidations to suggest a pneumonia. No evidence for pulmonary edema. S-shaped scoliosis of the thoracolumbar spine. There are surgical clips within right axilla. Old, healed right clavicle fracture again noted. IMPRESSION: No significant change compared to the prior study. No acute process.
[~2023-06-19 06:25] MED LIST changes: -ASCA500 PO; -B-COTAB18 PO; +BUPIVACAINE 0.5 % 5 MG/1 ML PF 10ML VIAL ONE; -CHOL1000 PO; -FLV400 PO; -MAGNTAB17 PO; -MXZC25 PO; -ONDA-170 PO; -PROC10TA PO; -ZINC PO
[2023-06-19] MEDS ORDERED: fentaNYL citrate PF 100 MCG/2 ML VIAL ONE ×3 (07:03→07:30)
[2023-06-19] MEDS: LR 60ML/HR IV SCH (07:08)
--- NOTE | 2023-06-19 07:08 | History & Physical Bridge Note ---
Date of Service June 19, 2023 History & Physical Bridge Note I have examined the patient, reviewed the History & Physical and in the interval since the performance of the History & Physical I have noted the following changes of clinical significance: no changes noted
[2023-06-19] MEDS: FAMOTIDINE 20 MG TAB PO SCH (07:09)
[2023-06-19] MEDS: GABAPENTIN 300 MG CAP PO SCH (07:09)
[2023-06-19] MEDS: ACETAMINOPHEN 500 MG TAB PO SCH ×2 (07:09→14:03)
[2023-06-19] MEDS ORDERED: DEXAMETHASONE SOD INJ 4 MG/ML VIAL ONE (07:12)
[2023-06-19] MEDS ORDERED: SUGAMMADEX SODIUM 200 MG/2 ML VIAL IV ONE (07:12)
[2023-06-19] MEDS ORDERED: GLYCOPYRROLATE 0.2 MG/ML VIAL ONE (07:12)
[2023-06-19] MEDS ORDERED: ROCURONIUM BROMIDE 10 MG/ML 5 ML VIAL IV ONE (07:12)
[2023-06-19] MEDS ORDERED: MIDAZOLAM HCL 1 MG/ML 2ML VIAL ONE (07:12)
[2023-06-19] MEDS ORDERED: LIDOCAINE 2% 2 ML VIAL/AMP(20MG/ML) INFIL ONE (07:12)
[2023-06-19] MEDS ORDERED: PROPOFOL IV EMULSION 10 MG/ML 20 ML VIAL IV ONE ×2 (07:12→09:06)
[2023-06-19] MEDS ORDERED: ONDANSETRON INJ 2 MG/ML 2 ML VIAL ONE ×2 (07:12→09:06)
[2023-06-19] MEDS: dexAMETHasone**PF** 10 MG/ML VIAL IV SCH (07:14)
[2023-06-19] MEDS: LR 15ML/HR IV SCH (07:14)
[2023-06-19] MEDS: TRANEXAMIC ACID 1,000 MG **IV Pre-op IV SCH (07:20)
[2023-06-19] MEDS ORDERED: ATROPINE SULFATE 0.1 MG/ML 10ML SYR IV PRN (07:31)
[2023-06-19] MEDS ORDERED: fentaNYL citrate PF 100 MCG/2 ML VIAL IV PRN (07:31)
[2023-06-19] MEDS ORDERED: ONDANSETRON INJ 2 MG/ML 2 ML VIAL IV PRN ×2 (07:31→10:00)
[2023-06-19] MEDS ORDERED: ePHEDrine sulfate 50 MG/ML AMP IV PRN (07:31)
[2023-06-19] MEDS: ceFAZolin 2000MG 2,000 MG/15 ML SYR IV SCH ×2 (07:35→15:55)
[2023-06-19] MEDS: ROPIV 0.5% 246mg, Ketorolac 30mg, EPINEPHrine 0.5mg in NSS INFIL SCH (08:24)
[2023-06-19] MEDS: ORTHO JOINT ANESTHETIC ONE (08:25)
[2023-06-19] MEDS: TRANEXAMIC ACID 1,000 MG **IV Intra-op IV SCH (08:35)
--- NOTE | 2023-06-19 08:37 | Operative Report ---
PG Post Operative Report Pre & Post Diagnosis Operation Date: 06/19/23 08:40 Pre-Op Diagnosis: Degenerative Joint Disease left Shoulder Post-Op Diagnosis: Degenerative Joint Disease left Shoulder I identified the patient and participated in the time-out.: Yes Procedure Operation Date: 06/19/23 08:40 Actual Procedures p Left Reverse Total Shoulder Arthroplasty(Left) - Bharath Sneed DO Surgeon Bharath Sneed DO Gin Clerk Bharath Wooten PA-C Estimated Blood Loss 200 Findings Consistent with Post-Op Diagnosis Specimens Left humeral head Description of Procedure Implants used: I used a Biomet Comprehensive reverse total shoulder arthroplasty system with a size 11 press fit micro humeral stem, a +6 offset humeral tray and a +3 retentive humeral bearing, a 25 mm baseplate with a 6.5 mm central screw and superior and inferior locking screws, and a size 36 mm eccentric glenosphere. Lillian arrived at [facility] for the above procedure. She was seen in the preoperative holding area and the operative extremity was identified and signed. She was given a preoperative antibiotic, TXA, and an interscalene nerve block. She was taken back to the operating room, laid on table in supine position, and put under general anesthesia. She was then put into the beachchair position. The shoulder was then prepped and draped in sterile fashion. A timeout was done and the patient and the operative extremity was properly identified. A deltopectoral approach was used. Dissection was taken down through the fascia and the deltoid was retracted laterally and the conjoined tendon was retracted medially. The anterior shoulder was exposed. The biceps tendon was chronically torn. The subscapularis was then directly released off the lesser tuberosity with a peel technique. The inferior capsule was released and the humeral head was dislocated. A canal finding reamer was sent down the center of the humeral canal. Sequential reaming up to a size 11 reamer was done. Off that reamer, a proximal humeral resection guide was placed. The proximal humerus was resected at 135 of inclination and 25 of retroversion. Osteophytes were then removed and the glenoid was exposed. Time was spent doing a complete capsular and labral release. The glenoid guide was then placed in the inferior aspect of the glenoid. A 3.2 mm Steinmann pin was then placed into the glenoid vault at 10 of inclination. The glenoid baseplate was then reamed. The final size 25 mm baseplate was then impacted in the place. A 6.5 mm central screw was then placed followed by superior and inferior locking screws. A 36 mm eccentric glenosphere was then impacted into place. Surrounding soft tissues were then injected with 100 cc an orthopedic pain control cocktail. The proximal humerus was then exposed. Sequential broaching of the humerus up to a size 11 broach was done. Off that broach a +6 offset and +3 retentive humeral tray was trialed. The shoulder was then reduced, brought through a full range of motion, and felt to be stable. The shoulder was then dislocated and the broach was removed. The final size 11 micro press-fit humeral stem was then impacted into place. A +3 retentive humeral bearing was then snapped onto a +6 offset humeral tray. The humeral tray was then impacted onto the humeral stem. The shoulder was once again reduced, brought through a full range of motion, and felt to be stable. The subscapularis was poor quality and retracted. It was unable to be repaired. A dilute betadyne lavage was then done for 3 minutes. The joint was then irrigated with normal saline solution. Hemostasis was obtained. The interval was closed with 2-0 Vicryl suture. The skin was then closed with 2-0 Vicryl and kam. A Silverlon dressing was placed and the arm was rested in a regular arm sling. She was then extubated and transferred to a hospital bed. She taken to the postanesthesia care unit in stable condition. She tolerated the procedure well. Bharath Wooten PA-C, was present for the entire procedure. He was critical for patient positioning, prepping, draping, retraction exposure, wound closure and application of sterile dressing. I attest to the content of the Intraoperative Record and any orders documented therein. Any exceptions are noted below.
--- NOTE | 2023-06-19 09:58 | XRay Report ---
XR shoulder LT min 2V routine CLINICAL HISTORY: Post shoulder surgery COMPARISON STUDY: None. FINDINGS: Status post reverse left total shoulder arthroplasty. The hardware is intact. No fracture o r dislocation. Skin kam are in place. IMPRESSION: Status post reverse left total shoulder arthroplasty. No evidence for hardware complicat ions. ACT 112: Negative or not required by law. Electronically signed by: Silver Beyer M.D. 06/19/2023 9:56 AM
[2023-06-19] MEDS ORDERED: oxyCODONE HCL IR 5 MG TAB (IMMEDIATE RELEASE) PO PRN (10:00)
[2023-06-19] MEDS ORDERED: HYDROmorphone INJ 0.5 MG/0.5 ML SYR IV PRN (10:00)
[2023-06-19] MEDS ORDERED: bisacodyL 10 MG SUPP PR PRN (10:00)
[2023-06-19] MEDS ORDERED: MAGNESIUM HYDROXIDE SUSP 30 ML UDC PO PRN (10:00)
[2023-06-19] MEDS ORDERED: NALOXONE HCL 0.4 MG/1 ML VIAL/CARP IV PRN (10:00)
[2023-06-19] MEDS ORDERED: METOCLOPRAMIDE HCL INJ 5 MG/ML 2 ML VIAL IV PRN (10:00)
--- NOTE | 2023-06-19 10:38 | Anesthesiology Progress Note ---
Date of Service June 19, 2023 Anesthesia Post Procedure Vital Signs Vital Signs: Temp Pulse Pulse Resp BP Pulse Ox O2 Del Method 06/19/23 10:15 97.3 F L 82 18 103/70 95 Room Air 06/19/23 09:45 97.7 F 89 18 126/76 95 Room Air 06/19/23 09:35 97.5 F L 06/19/23 09:25 97.2 F L 81 15 124/82 96 Room Air 06/19/23 09:15 86 14 128/79 100 Oxymask 06/19/23 09:05 90 15 127/92 100 Oxymask 06/19/23 08:55 96.8 F L 91 H 15 134/92 96 Oxymask 06/19/23 06:57 97.7 F 88 20 156/97 H 95 Room Air O2 Flow Rate 06/19/23 10:15 06/19/23 09:45 06/19/23 09:35 06/19/23 09:25 06/19/23 09:15 5 06/19/23 09:05 5 06/19/23 08:55 5 06/19/23 06:57 Pain Intensity Left Shoulder: Pain Intensity: 0 Transfer of Care Handoff Completed per policy Notes Mental Status: alert / awake / arousable and participated in evaluation Patient Amnestic to Procedure: Yes Nausea / Vomiting: adequately controlled Pain: adequately controlled Airway Patency, RR, SpO2: stable & adequate BP & HR: stable & adequate Hydration State: stable & adequate Anesthetic Complications: no major complications apparent and Pt Satisfied with anesthetic care
[2023-06-19] MEDS: SODIUM CHLORIDE 0.9% 1,000 ML IV SCH (10:49)
[2023-06-19] MEDS: DOCUSATE SODIUM 100 MG CAP PO SCH (10:50)
[2023-06-19] MEDS: FOLIC ACID 400 MCG TAB PO SCH (10:50)
[2023-06-19] MEDS: ASPIRIN 81 MG ECTAB PO SCH (10:50)
[2023-06-19] MEDS: MULTIVITAMIN TAB PO SCH (10:51)
[2023-06-19] MEDS: LEVOTHYROXINE SODIUM 50 MCG TABLET PO SCH (10:51)
[2023-06-19] MEDS: TRIAMTERENE/HCTZ 37.5/25MG TAB PO SCH (10:52)
[2023-06-19] MEDS: SENNA 8.6 MG TAB PO SCH (20:11)
[2023-06-19] MEDS: TAMOXIFEN CITRATE 10 MG TABLET PO SCH (21:18)
[2023-06-20] MEDS: ZOLPIDEM TARTRATE 5 MG TAB PO PRN (00:14)
[2023-06-20] MEDS: dexAMETHasone 4 MG TAB PO SCH (08:36)
[2023-06-20] MEDS: MAGNESIUM OXIDE 400 MG TAB PO SCH (08:37)
--- NOTE | 2023-06-20 10:11 | Orthopedic Progress Note ---
Date of Service June 20, 2023 Assessment & Plan (1) Status post reverse total replacement of left shoulder: Overall, she is doing quite well today with good pain control to the left shoulder. She will be seen and evaluated by physical therapy later this morning to work on range of motion exercises. She can be discharged home later this morning pending physical therapy evaluation. She will follow-up in 2 weeks with orthopedics for postoperative management. Subjective . Lillian was seen and evaluated at bedside this morning resting comfortably in no apparent distress. She notes that her pain is well-controlled to the left shoulder. She is currently in her sling as directed. She has been up out of bed with no significant issues. She has yet to be seen by physical therapy this morning. She denies any other concerns today. Review of Systems All systems reviewed & are unremarkable except as noted in HPI & below. Physical Exam . On physical examination of left shoulder, dressings are clean, dry, intact. Left arm is immobilized in her sling. She has intact gross motor and sensory function of left upper extremity. +2 radial pulse. Less than 2-second capillary refill. Normal sensation. Neurovascular intact. Results & Data Results & Data Laboratory Results . Diagnostic Findings . Postoperative x-rays of the left shoulder show prosthesis to be anatomical alignment with no signs of fracture complication or loosening. PG Care Time/CCT Total # of Minutes Spent Total Time Spent with Patient: Total time spent is greater than 50% in coordination of care (as documented) at patient's floor/unit and/or counseling patient: Coding Level of Care Code 04831 Post Operative Follow-Up Diagnoses Status post reverse total replacement of left shoulder Z96.612
--- NOTE | 2023-06-20 10:14 | Discharge Summary ---
Date of Service June 20, 2023 Principal Diagnosis Same as "Discharge Diagnosis" noted below under Discharge Instructions. Discharge Exam . On physical examination of left shoulder, dressings are clean, dry, intact. Left arm is immobilized in her sling. She has intact gross motor and sensory function of left upper extremity. +2 radial pulse. Less than 2-second capillary refill. Normal sensation. Neurovascular intact. Discharge Data Procedures Performed Operation Date: 06/19/23 08:40 Actual Procedures p Left Reverse Total Shoulder Arthroplasty(Left) - Bharath Sneed DO Ordered Studies 06/19/23 05:00 US - OR guided needle placemen Routine Hospital Course (1) Status post reverse total replacement of left shoulder: On June 19, 2023 Lillian arrived at [facility] underwent a left reverse total shoulder arthroplasty performed by Dr. Sneed with no complications. She had a general anesthetic. Postoperatively, she was transferred to the PACU for immediate postoperative management. She was or iginally scheduled to be an outpatient joint procedure. She did not feel comfortable being discharged yesterday and requested to stay overnight. She was then admitted into the hospital. She was transferred to the general orthopedic floor in stable condition. Her hospital course was uneventful. On postoperative day #1, her vital signs were stable and her pain was well- controlled. She participated well with physical therapy working on range of motion exercises. She was then discharged home in stable condition. She is going to follow-up with orthopedics in 2 weeks for postoperative management. PG Care Time/CCT Total # of Minutes Spent Total Time Spent with Patient: Total time spent is greater than 50% in coordination of care (as documented) at patient's floor/unit and/or counseling patient: Discharge Plan Discharge Items Patient Disposition: Home - Self-Care Reason For Visit: Degenerative Joint Disease Right Shoulder Discharge Diagnosis: same as above Activity: Per Instructions section Non-emergency contact: Surgeon Call non-emergency contact if: your temperature is above 101.5, your wound has increased redness and your wound has increased drainage Follow-up/Referrals: Christian Mehta MD [Primary Care Provider] - Diet: Regular Addtl Attending Provider Instructions: Activity and Therapy Recommendations: * If you are using [facility] then therapy will be provided at your home until they feel you have accomplished all of your goals. * If you are using [facility] then Physical Therapy will be provided until they feel you are ready to start Outpatient Physical Therapy. * If you are not using home therapy then Outpatient Physical Therapy should start about 3-5 days from your day of surgery. Therapy will last about 8-12 weeks * Wear your sling for 3 weeks, unless otherwise instructed. You may remove your sling to shower and to dress, but otherwise, you should be in your sling at all times, including while sleeping * The shoulder replacement is very stable and you can use your hand while in the sling * You were shown a series of exercises in the hospital. Do these exercises daily including the exercises you were shown in physical therapy. Medications: * Narcotic You will likely be sent home from the hospital with a prescription for the narcotic pain medication that worked best throughout your stay. * * You will be prescribed an antibiotic called Cefadroxil. Take it as prescribed to completion * Other medications may be prescribed for specific circumstances. If you have any questions, please call the office at . * Resume previous home medications unless otherwise instructed Dressing Care: Leave the Silverlon dressing in place for 7 days. After 7 days you may remove the dressing. If the incision is not draining then you may leave the kam open to air. If there is a little bit of drainage or if the kam are getting stuck on your clothing then cover the incision with a dry dressing. The kam will be removed at your 2 week follow-up appointment. Showering: You may shower with the Silverlon dressing in place. Do not let the shower spray hit the dressing directly. Pat the Silverlon dressing dry. If the dressing becomes wet underneath, then simply remove the dressing. Keep the incision dry until you are 7 days out from the day of surgery. After 7 days you may remove the Silverlon dressing and shower with the kam exposed. Let soapy water run over the kam and pat them dry. Do not scrub or soak the incision. Things To Watch For: * Drainage from the incision site that occurs more than one week after your surgery. * Increased redness at the incision site. * Fever above 102 degrees Fahrenheit. * Unusual chest pain or shortness of breath. * Call [facility] at with any of the above problems Follow-Up Visit: Follow-up with Dr. Sneed's PA (Bharath Wooten) 2-3 weeks after your day of surgery. He will remove your kam and answer any questions. If you have any additional questions or concerns, Dr Sneed is usually in the office at the same time and will be available An appointment was probably scheduled when you signed-up for surgery in the office. If you have any questions call More detailed instructions as well as Frequently Asked Questions were provided in a folder by our office when you signed-up for surgery. Please review these instructions when you get home. If you have any further questions or concerns, please feel free to call the office at [phone] Pending Studies at Discharge: No Stand-Alone Forms: My [facility], Pain - Opioid Pain Management, Smoking Cessation Medications and DC Order Prescriptions: New celecoxib [Celebrex] 200 mg capsule 200 mg PO Q12H PRN (Reason: pain) Qty: 30 0RF cefadroxil 500 mg capsule 500 mg PO BID 10 Days Qty: 20 0RF oxycodone-acetaminophen [Percocet] 5-325 mg tablet 1 tab PO Q6H PRN (Reason: pain) Qty: 30 0RF Continued aspirin [Adult Low Dose Aspirin] 81 mg tablet,delayed release (DR/EC) 81 mg PO QAM cyanocobalamin (vitamin B-12) 1,000 mcg Tablet 1,000 mcg PO QAM folic acid 400 mcg Tablet 0.4 mg PO QAM ascorbic acid (vitamin C) [Vitamin C] 500 mg Capsule, Extended Release 500 mg PO QAM cholecalciferol (vitamin D3) [Vitamin D3] 2,000 unit Tablet 2,000 unit PO QAM calcium carbonate 300 mg (750 mg) Tablet,Chewable 300 mg PO QAM magnesium 500 mg Tablet 500 mg PO QAM levothyroxine 50 mcg tablet 50 mcg PO QAM triamterene-hydrochlorothiazid 37.5-25 mg tablet 1 tab PO QAM tamoxifen 20 mg tablet 20 mg PO QPM Discontinued acetaminophen 325 mg Tablet 325 mg PO QID PRN (Reason: Pain) ibuprofen 200 mg Tablet 200 mg PO Q6H PRN (Reason: Pain) Discharge Orders: Discharge Order (Routine); Ordered 06/20/23 Ordered By: Santy Avilez/Other Patient Handouts: Shoulder Replace Home Recovery, Shoulder Replacement Surg Recovery Admission Data Admit Date/Time: 06/19/23 08:56 Attending Provider: Bharath Sneed Admit Provider: Bharath Sneed Primary Care Provider: Christian Mehta Other Interventions: Discharge Summary Assessment (RN) Last Done: 06/20/23 09:25
== END 2023-06-20 10:22 | disposition home or self-care (01) ==
LOC: ASU 06:25 → 3E 06:25

== ENCOUNTER 2024-01-22 06:22 | Observation (INO) ==
--- NOTE | 2023-12-25 13:16 | PAT Medication Instructions ---
Medication Instructions Date of Service December 25, 2023 Home Medications Medication Instructions Recorded levothyroxine 75 mcg tablet 75 mcg PO QAM #90 tabs 09/26/23 amoxicillin 500 mg tablet 2,000 mg (4 x 500 mg) PO ONCE #4 11/24/23 tabs ascorbic acid (vitamin C) 500 mg capsule,extended release (Vitamin C) 500 mg PO QAM cholecalciferol (vitamin D3) 50 mcg (2,000 unit) tablet (Vitamin D3) 2,000 unit PO QAM cyanocobalamin (vitamin B-12) 1,000 mcg tablet 1,000 mcg PO QAM folic acid 400 mcg tablet 0.4 mg PO QAM aspirin 81 mg tablet,delayed release (Adult Low Dose Aspirin) 81 mg PO QAM calcium carbonate 300 mg PO QAM magnesium 500 mg tablet 500 mg PO QAM tamoxifen 20 mg tablet 20 mg PO QPM triamterene 37.5 mg-hydrochlorothiazide 25 mg tablet 1 tab PO QAM levothyroxine 75 mcg tablet 75 mcg PO QAM amoxicillin 500 mg tablet 2,000 mg (4 x 500 mg) PO ONCE Continue as directed amoxicillin 500 mg tablet 2,000 mg (4 x 500 mg) PO ONCE ASK your prescriber and surgeon aspirin 81 mg tablet,delayed release (Adult Low Dose Aspirin) 81 mg PO QAM DO NOT take the morning of surgery ascorbic acid (vitamin C) 500 mg capsule,extended release (Vitamin C) 500 mg PO QAM cholecalciferol (vitamin D3) 50 mcg (2,000 unit) tablet (Vitamin D3) 2,000 unit PO QAM cyanocobalamin (vitamin B-12) 1,000 mcg tablet 1,000 mcg PO QAM folic acid 400 mcg tablet 0.4 mg PO QAM calcium carbonate 300 mg PO QAM magnesium 500 mg tablet 500 mg PO QAM triamterene 37.5 mg-hydrochlorothiazide 25 mg tablet 1 tab PO QAM Take morning of surgery With a small sip of water, OTHERWISE NOTHING TO EAT OR DRINK AFTER MIDNIGHT: levothyroxine 75 mcg tablet 75 mcg PO QAM Other Notes If you have any questions please call us at [phone] or [phone] or [phone] or [phone]
--- NOTE | 2024-01-02 12:42 | Anesthesiology Consultation ---
Date of Service January 02, 2024 Assessment & Plan (1) Encounter for pre-operative examination: - Infectious disease screening: Per assessment on 01/02/24: No known recent infectious disease contacts or current infectious disease symptoms. - Outpatient joint assessment: Pt currently scheduled for inpatient pathway. Patient was evaluated for OPJ pathway prior to Left reverse TSA done at [facility] without issue- per anesthesia consult at that time, case was reviewed with Dr. Collins and patient was approved for OPJ pathway. If surgeon requests review for outpatient joint pathway, patient is an acceptable candidate for outpatient joint program from anesthesia standpoint pending surgeon's office assessment that patient is motivated, has good support and completes Same Day Joint Program preop requirements. - S/P Left reverse TSA (06/19/23): LMA#4 + regional at [facility] Chart Review Chart Review: Acceptable Risk for Surgery and Patient seen in Pre Admission Testing Teaching & Discussion Pre-Anesthesia Teaching/Discussion Notes: Instructed NPO after midnight before surgery,except medications with 15 cc of water. Medication instructions provided according to the PAT guidelines. History Surgery Operation Date: 01/22/24 08:40 Proposed Procedures p Right Reverse Total Shoulder Arthroplasty - Bharath Sneed, Height/Weight Height: 5 ft 6.5 in Weight: 55.1 kg Allergies Allergy/AdvReac Type Severity Reaction Status Date / Time amoxicillin [From Augmentin] Allergy Intermediate Abdominal Verified 12/22/23 11:18 pain, diarrhea, nausea clavulanic acid Allergy Intermediate Abdominal Verified 12/22/23 11:18 [From Augmentin] pain, diarrhea, nausea codeine Allergy Intermediate Hives Verified 12/22/23 11:18 amitriptyline [From Elavil] AdvReac Mild Fatigue Verified 12/22/23 11:18 atorvastatin AdvReac Mild Myalgia Verified 12/22/23 11:18 Medications Home Medications Medication Instructions Recorded Confirmed Last Taken ascorbic acid (vitamin C) 500 mg 500 mg PO QAM 03/05/18 12/22/23 03/15/18 capsule,extended release (Vitamin C) cholecalciferol (vitamin D3) 50 2,000 unit PO QAM 03/05/18 12/22/23 2 Days Ago mcg (2,000 unit) tablet (Vitamin ~06/17/23 D3) cyanocobalamin (vitamin B-12) 1,000 mcg PO QAM 03/05/18 12/22/23 2 Days Ago 1,000 mcg tablet ~06/17/23 folic acid 400 mcg tablet 0.4 mg PO QAM 03/05/18 12/22/23 2 Days Ago ~06/17/23 aspirin 81 mg tablet,delayed 81 mg PO QAM 08/12/19 12/22/23 06/19/23 05:30 release (Adult Low Dose Aspirin) calcium carbonate 300 mg PO QAM 12/01/22 12/22/23 06/18/23 14:00 magnesium 500 mg tablet 500 mg PO QAM 05/16/23 12/22/23 06/18/23 14:00 tamoxifen 20 mg tablet 20 mg PO QPM 05/16/23 12/22/23 06/18/23 18:00 triamterene 37.5 1 tab PO QAM 05/16/23 12/22/23 06/18/23 14:00 mg-hydrochlorothiazide 25 mg tablet levothyroxine 75 mcg tablet 75 mcg PO QAM #90 tabs 09/26/23 12/22/23 Unknown amoxicillin 500 mg tablet 2,000 mg (4 x 500 mg) PO ONCE #4 11/24/23 12/22/23 Unknown tabs Past Medical History Medical History Diverticulosis History of compression fracture of spine T12- occurred around 2015 Conservative treatment only Hyperlipidemia Hypertension Hypothyroidism Lumbar radiculopathy Malignant neoplasm of central portion of right breast in female, estrogen receptor positive Invasive ductal carcinoma, grade 3 as well as positive axillary node biopsy Status post right partial mastectomy and axillary dissection 2018 Status post completion of systemic chemotherapy 2018 Follows with CCP heme/onc Osteoarthritis Osteopenia Peripheral neuropathy Exercise / Class Metabolic Activity II 4-5 Yardwork/Stairs/Walk up hill Past Family History Family History Father Family hx of colon cancer Cardiac disorder Myocardial infarction Colorectal cancer Mother Hypertension Son Thyroid cancer Other No family history of adverse response to anesthesia Denies family history of Ovarian cancer Prostate cancer Breast cancer Past Surgical History Surgical History H/O vaginal surgery A&P repair, Dr. Penn [facility] 11/2019 History of bilateral tubal ligation History of cataract surgery R/L History of colonoscopy History of dilatation and curettage History of tonsillectomy and adenoidectomy History of tooth extraction History of vascular access device removed Hx of foot surgery Left foot toe surgery Hx of lumpectomy Right Status post lymph node biopsy 04/2017 Status post reverse total replacement of left shoulder Left reverse TSA (06/19/23): LMA#4 + regional at [facility] Past Anesthesia History No Hx of Anesthesia Complications and No Family Hx of Anesthesia Complications History of PONV No Hx of PONV and No Hx of Motion Sickness Social History Smoking Status: Former smoker Smoking cigarettes per day: Quit 50+ years ago Do You Dip or Chew Tobacco: No Smoking End Date: quit at age 34 Hx Alcohol Use: Yes Alcohol type: wine alcohol intake frequency: holidays/special occasions only Hx Substance Use: No substance use type: does not use Review of Systems Patient denies chest pain, shortness of breath, dyspnea on exertion, fever, chills, cough, wheezing. Physical Exam Vital Signs BP 100/63 P 76 TEMP 98.0 SP02 95%RA RESP 18 Physical Full cervical extension range of motion. Full TMJ range of motion. TMD 3 finger breaths Mallampati Score I Dentition: upper partial Lungs: clear throughout to auscultation Cardiac: regular rate and rhythm, no murmurs noted Spine: normal Carotid arteries: negative bruit Extremities: no LE edema Lab Results Anesthesia Preop Results Results Anesthesia Widget: WBC 5.51 K/ul (4.8-10.8) 01/02/24 Hgb 12.8 g/dl (12.0-16.0) 01/02/24 Hct 38.8 % (37.0-47.0) 01/02/24 Plt 196 K/uL (130-400) 01/02/24 Na 139 mmol/L (136-145) 01/02/24 K 4.3 mmol/L (3.5-5.1) 01/02/24 Cl 104 mmol/L (98-107) 01/02/24 CO2 30 mmol/L (21-32) 01/02/24 BUN 27 mg/dl (6-23) H 01/02/24 Creat 0.88 mg/dl (0.6-1.2) 01/02/24 Glucose Level 89 mg/dl (70-99(Fasting)) 01/02/24 PT 10.3 Seconds (9.0-12.0) 01/02/24 PTT 25 Seconds (21-31) 01/02/24 INR 0.9 (0.9-1.1) 01/02/24 TSH 0.258 uIu/ml (0.300-4.500) L 01/02/24 Blood Type B Negative 01/02/24 Antibody Screen NEGATIVE 01/02/24 Testing Electrocardiogram Date: 05/23/23 Findings: + NSR @ (72bpm ) Left axis deviation Incomplete RBBB Chest X-Ray Date: 05/23/23 FINDINGS: No pneumothorax. No pleural effusions. The cardiac silhouette is top normal in size. Small left basilar linear densities favor subsegmental atelectasis are scarring. No focal lung consolidations to suggest a pneumonia. No evidence for pulmonary edema. S-shaped scoliosis of the thoracolumbar spine. There are surgical clips within right axilla. Old, healed right clavicle fracture again noted. IMPRESSION: No significant change compared to the prior study. No acute process.
--- NOTE | 2024-01-22 06:27 | History & Physical Bridge Note ---
Date of Service January 22, 2024 History & Physical Bridge Note I have examined the patient, reviewed the History & Physical and in the interval since the performance of the History & Physical I have noted the following changes of clinical significance: no changes noted
[2024-01-22] MEDS ORDERED: BUPIVACAINE 0.5 % 5 MG/1 ML PF 10ML VIAL ONE (06:28)
[2024-01-22] MEDS: LR 60ML/HR IV SCH (07:04)
[2024-01-22] MEDS: dexAMETHasone**PF** 10 MG/ML VIAL IV SCH (07:05)
[2024-01-22] MEDS: ACETAMINOPHEN 500 MG TAB PO SCH ×2 (07:06→15:28)
[2024-01-22] MEDS: FAMOTIDINE 20 MG TAB PO SCH (07:06)
[2024-01-22] MEDS: GABAPENTIN 300 MG CAP PO SCH (07:06)
[2024-01-22] MEDS: LR 15ML/HR IV SCH (07:07)
[2024-01-22] MEDS ORDERED: fentaNYL citrate PF 100 MCG/2 ML VIAL IV PRN (07:37)
[2024-01-22] MEDS ORDERED: ONDANSETRON INJ 2 MG/ML 2 ML VIAL IV PRN ×2 (07:37→11:02)
[2024-01-22] MEDS ORDERED: ATROPINE SULFATE 0.1 MG/ML 10ML SYR IV PRN (07:37)
[2024-01-22] MEDS ORDERED: ePHEDrine sulfate 50 MG/ML AMP IV PRN (07:37)
[2024-01-22] MEDS ORDERED: fentaNYL citrate PF 100 MCG/2 ML VIAL ONE (08:15)
[2024-01-22] MEDS: TRANEXAMIC ACID 1,000 MG **IV Pre-op IV SCH (08:33)
[2024-01-22] MEDS ORDERED: DEXAMETHASONE SOD INJ 4 MG/ML VIAL ONE (08:38)
[2024-01-22] MEDS ORDERED: ONDANSETRON INJ 2 MG/ML 2 ML VIAL ONE (08:38)
[2024-01-22] MEDS ORDERED: PROPOFOL IV EMULSION 10 MG/ML 20 ML VIAL IV ONE (08:38)
[2024-01-22] MEDS ORDERED: LIDOCAINE 2% 2 ML VIAL/AMP(20MG/ML) INFIL ONE (08:38)
[2024-01-22] MEDS: ceFAZolin 2000MG 2,000 MG/15 ML SYR IV SCH ×2 (08:55→15:28)
[2024-01-22] MEDS: ROPIV 0.5% 246mg, Ketorolac 30mg, EPINEPHrine 0.5mg in NSS INFIL SCH (09:19)
[2024-01-22] MEDS: TRANEXAMIC ACID 1,000 MG **IV Intra-op IV SCH (09:42)
--- NOTE | 2024-01-22 09:49 | Operative Report ---
PG Post Operative Report Pre & Post Diagnosis Operation Date: 01/22/24 08:40 Pre-Op Diagnosis: Cuff tear arthropathy of the right shoulder Post-Op Diagnosis: Cuff tear arthropathy of the right shoulder I identified the patient and participated in the time-out.: Yes Procedure Operation Date: 01/22/24 08:40 Actual Procedures p Right Reverse Total Shoulder Arthroplasty(Right) - Bharath Sneed DO Surgeon Bharath Sneed DO Pvc Monitor Bharath Wooten PA-C Estimated Blood Loss 150 Findings Consistent with Post-Op Diagnosis Specimens Right humeral head Description of Procedure Implants used: I used a [employer] Comprehensive reverse total shoulder arthroplasty system with a size 10 press fit micro humeral stem, a +6 offset humeral tray and a +3 retentive humeral bearing, a 25 mm baseplate with a 6.5 mm central screw and superior and inferior locking screws, and a size 36 mm eccentric glenosphere. Lillian arrived at [facility] for the above procedure. She was seen in the preoperative holding area and the operative extremity was identified and signed. She was given a preoperative antibiotic, TXA, and an interscalene nerve block. She was taken back to the operating room, laid on table in supine position, and put under general anesthesia. She was then put into the beachchair position. The shoulder was then prepped and draped in sterile fashion. A timeout was done and the patient and the operative extremity was properly identified. A deltopectoral approach was used. Dissection was taken down through the fascia and the deltoid was retracted laterally and the conjoined tendon was retracted medially. The anterior shoulder was exposed. The biceps tendon was already torn. The subscapularis was then directly released off the lesser tuberosity with a peel technique. The inferior capsule was released and the humeral head was dislocated. A canal finding reamer was sent down the center of the humeral canal. Sequential reaming up to a size 10 reamer was done. Off that reamer, a proximal humeral resection guide was placed. The proximal humerus was resected at 135 of inclination and 25 of retroversion. Osteophytes were then removed and the glenoid was exposed. Time was spent doing a complete capsular and labral release. The glenoid guide was then placed in the inferior aspect of the glenoid. A 3.2 mm Steinmann pin was then placed into the glenoid vault at 10 of inclination. The glenoid baseplate was then reamed. The final size 25 mm baseplate was then impacted in the place. A 6.5 mm central screw was then placed followed by superior and inferior locking screws. A 36 mm eccentric glenosphere was then impacted into place. Surrounding soft tissues were then injected with 100 cc an orthopedic pain control cocktail. The proximal humerus was then exposed. Sequential broaching of the humerus up to a size 10 broach was done. Off that broach a +6 offset and +3 retentive humeral tray was trialed. The shoulder was then reduced, brought through a full range of motion, and felt to be stable. The shoulder was then dislocated and the broach was removed. The final size 10 micro press-fit humeral stem was then impacted into place. A +3 retentive humeral bearing was then snapped onto a +6 offset humeral tray. The humeral tray was then impacted onto the humeral stem. The shoulder was once again reduced, brought through a full range of motion, and felt to be stable. The subscapularis was poor quality and unable to be repaired. A dilute betadyne lavage was then done for 3 minutes. The joint was then irrigated with normal saline solution. Hemostasis was obtained. The interval was closed with 2-0 Vicryl suture. The skin was then closed with 2-0 Vicryl and kam. A Silverlon dressing was placed and the arm was rested in a regular arm sling. She was then extubated and transferred to a hospital bed. She taken to the postanesthesia care unit in stable condition. She tolerated the procedure well. Bharath Wooten PA-C, was present for the entire procedure. He was critical for patient positioning, prepping, draping, retraction exposure, wound closure and application of sterile dressing. I attest to the content of the Intraoperative Record and any orders documented therein. Any exceptions are noted below.
[2024-01-22] MEDS ORDERED: PHENYLEPHRINE HCL 10 MG/ML VIAL ONE (10:43)
[2024-01-22] MEDS ORDERED: METOCLOPRAMIDE HCL INJ 5 MG/ML 2 ML VIAL IV PRN (11:02)
[2024-01-22] MEDS ORDERED: HYDROmorphone INJ 0.5 MG/0.5 ML SYR IV PRN (11:02)
[2024-01-22] MEDS ORDERED: oxyCODONE HCL IR 5 MG TAB (IMMEDIATE RELEASE) PO PRN (11:02)
[2024-01-22] MEDS ORDERED: MAGNESIUM HYDROXIDE SUSP 30 ML UDC PO PRN (11:02)
[2024-01-22] MEDS ORDERED: NALOXONE HCL 0.4 MG/1 ML VIAL/CARP IV PRN (11:02)
[2024-01-22] MEDS ORDERED: bisacodyL 10 MG SUPP PR PRN (11:02)
[2024-01-22] MEDS: ORTHO JOINT ANESTHETIC ONE (11:05)
[2024-01-22] MEDS: SODIUM CHLORIDE 0.9% 1,000 ML IV SCH (11:07)
--- NOTE | 2024-01-22 12:53 | XRay Report ---
XR shoulder RT min 2V routine CLINICAL HISTORY: Post shoulder surgery COMPARISON: Right shoulder radiographs January 02, 2024. FINDINGS: Alignment of the reverse total right shoulder arthroplasty is anatomic. There is horizonta l lucency within the proximal lateral right humerus. This could reflect a periprosthetic fracture. Th ere are no additional fractures. There are no unexpected radiopaque foreign bodies. There are skin st aples and right axillary surgical clips. IMPRESSION: Status post right shoulder arthroplasty. No unexpected radiopaque foreign bodies. Horizon ree lucency within the proximal lateral right humerus. This could reflect a periprosthetic fracture a nd can be assessed on follow-up right shoulder radiographs. ACT 112: Negative or not required by law. Electronically signed by: Edgar Do M.D. 01/22/2024 12:52 PM
--- NOTE | 2024-01-22 13:02 | Anesthesiology Progress Note ---
Date of Service January 22, 2024 Anesthesia Post Procedure Vital Signs Vital Signs: Temp Pulse Pulse Resp BP Pulse Ox O2 Del Method 01/22/24 12:51 97.5 F L 73 16 110/68 93 Room Air 01/22/24 11:50 98.1 F 73 16 112/69 95 Room Air 01/22/24 11:20 97.5 F L 82 16 121/70 96 Room Air 01/22/24 10:50 97.3 F L 84 18 110/70 93 Room Air 01/22/24 10:40 97.7 F 80 12 119/68 95 Room Air 01/22/24 10:25 83 14 129/70 94 Room Air 01/22/24 10:15 88 22 134/72 94 Room Air 01/22/24 10:05 95 H 20 149/77 H 98 Oxymask 01/22/24 09:58 97.7 F 101 H 11 L 153/78 H 99 Oxymask 01/22/24 06:57 97.9 F 76 16 150/90 H 96 Room Air O2 Flow Rate 01/22/24 12:51 01/22/24 11:50 01/22/24 11:20 01/22/24 10:50 01/22/24 10:40 01/22/24 10:25 01/22/24 10:15 01/22/24 10:05 6 01/22/24 09:58 6 01/22/24 06:57 Transfer of Care Handoff Completed per policy Notes Mental Status: alert / awake / arousable and participated in evaluation Patient Amnestic to Procedure: Yes Nausea / Vomiting: adequately controlled Pain: adequately controlled Airway Patency, RR, SpO2: stable & adequate BP & HR: stable & adequate Hydration State: stable & adequate Anesthetic Complications: no major complications apparent and Pt Satisfied with anesthetic care
[2024-01-22] MEDS: TAMOXIFEN CITRATE 10 MG TABLET PO SCH (19:36)
[2024-01-22] MEDS: DOCUSATE SODIUM 100 MG CAP PO SCH (20:04)
[2024-01-22] MEDS: SENNA 8.6 MG TAB PO SCH (20:04)
[2024-01-22] MEDS: MELATONIN 3 MG TAB PO PRN (23:12)
[2024-01-23] MEDS: LEVOTHYROXINE SODIUM 100 MCG TABLET PO SCH (05:10)
--- NOTE | 2024-01-23 07:07 | Orthopedic Progress Note ---
Date of Service January 23, 2024 Assessment & Plan (1) Status post reverse total replacement of right shoulder: Overall she is doing fairly well. She is not having much pain in the right shoulder. She will be seen by physical therapy today for ambulation and range of motion exercises. She can be discharged home later today. She will follow- up with orthopedics in 2 weeks. Selvin Snyder was seen and examined at bedside this morning. Overall she is doing fairly well. She is not having much pain in the right shoulder. She was able to get some sleep last night. She has no complaints.. Review of Systems All systems reviewed & are unremarkable except as noted in HPI & below. Physical Exam On physical examination of the right shoulder, the dressing is clean and dry. She is wearing her sling as instructed. She has motion of her hand and her wrist.. Results & Data Results & Data Laboratory Results . Diagnostic Findings Postoperative x-rays of the right shoulder show the prosthesis to be in anatomic alignment without any evidence of fracture complication, or loosening.. PG Care Time/CCT Total # of Minutes Spent Total Time Spent with Patient: Total time spent is greater than 50% in coordination of care (as documented) at patient's floor/unit and/or counseling patient: Coding Level of Care Code 80553 Post Operative Follow-Up Diagnoses Status post reverse total replacement of right shoulder Z96.611
--- NOTE | 2024-01-23 07:08 | Discharge Summary ---
Date of Service January 23, 2024 Principal Diagnosis Same as "Discharge Diagnosis" noted below under Discharge Instructions. Discharge Exam On physical examination of the right shoulder, the dressing is clean and dry. She is wearing her sling as instructed. She has motion of her hand and her wrist.. Discharge Data Procedures Performed Operation Date: 01/22/24 08:40 Actual Procedures p Right Reverse Total Shoulder Arthroplasty(Right) - Bharath Sneed DO Ordered Studies 01/22/24 05:00 US - OR guided needle placemen Routine Hospital Course (1) Status post reverse total replacement of right shoulder: On January 22, 2024 Lillian arrived at [facility] and underwent a right reverse shoulder replacement without complication. She had a general anesthetic and a right interscalene nerve block. Postoperatively, she was placed in a sling and transferred to the general orthopedic floors. Her hospital course was uneventful. On postop day #1, her vital signs were stable and her pain was well-controlled. She was able to participate well with physical therapy doing ambulation and range of motion exercises. She was then discharged to home. She will follow-up with orthopedics in 2 weeks. PG Care Time/CCT Total # of Minutes Spent Total Time Spent with Patient: Total time spent is greater than 50% in coordination of care (as documented) at patient's floor/unit and/or counseling patient: Discharge Plan Discharge Items Patient Disposition: Home - Self-Care Reason For Visit: Degenerative Joint Disease, Right Shoulder Discharge Diagnosis: Right reverse shoulder replacement Activity: Per Instructions section Non-emergency contact: Surgeon Call non-emergency contact if: your wound has increased redness and your wound has increased drainage Follow-up/Referrals: Christian Mehta MD [Primary Care Provider] - Diet: Regular Addtl Attending Provider Instructions: Activity and Therapy Recommendations: * If you are using [facility] then therapy will be provided at your home until they feel you have accomplished all of your goals. * If you are using [facility] then Physical Therapy will be provided until they feel you are ready to start Outpatient Physical Therapy. * If you are not using home therapy then Outpatient Physical Therapy should start about 3-5 days from your day of surgery. Therapy will last about 8-12 weeks * Wear your sling for 3 weeks, unless otherwise instructed. You may remove your sling to shower and to dress, but otherwise, you should be in your sling at all times, including while sleeping * The shoulder replacement is very stable and you can use your hand while in the sling * You were shown a series of exercises in the hospital. Do these exercises daily including the exercises you were shown in physical therapy. Medications: * Narcotic You will likely be sent home from the hospital with a prescription for the narcotic pain medication that worked best throughout your stay. * Cefadroxil -take the antibiotic twice a day for 10 days to help prevent infection. * Other medications may be prescribed for specific circumstances. If you have any questions, please call the office at . * Resume previous home medications unless otherwise instructed Dressing Care: Leave the Silverlon dressing in place for 7 days. After 7 days you may remove the dressing. If the incision is not draining then you may leave the kam open to air. If there is a little bit of drainage or if the kam are getting stuck on your clothing then cover the incision with a dry dressing. The kam will be removed at your 2 week follow-up appointment. Showering: You may shower with the Silverlon dressing in place. Do not let the shower spray hit the dressing directly. Pat the Silverlon dressing dry. If the dressing becomes wet underneath, then simply remove the dressing. Keep the incision dry until you are 7 days out from the day of surgery. After 7 days you may remove the Silverlon dressing and shower with the kam exposed. Let soapy water run over the kam and pat them dry. Do not scrub or soak the incision. Diet: You may resume your previous diet. Things To Watch For: * Drainage from the incision site that occurs more than one week after your surgery. * Increased redness at the incision site. * Fever above 102 degrees Fahrenheit. * Unusual chest pain or shortness of breath. * Call [facility] at with any of the above problems Follow-Up Visit: Follow-up with Dr. Sneed's PA (Bharath Wooten) 2-3 weeks after your day of surgery. He will remove your kam and answer any questions. If you have any additional questions or concerns, Dr Sneed is usually in the office at the same time and will be available An appointment was probably scheduled when you signed-up for surgery in the office. If you have any questions call More detailed instructions as well as Frequently Asked Questions were provided in a folder by our office when you signed-up for surgery. Please review these instructions when you get home. If you have any further questions or concerns, please feel free to call the office at [phone] Pending Studies at Discharge: No Stand-Alone Forms: My [facility], Smoking Cessation Medications and DC Order Prescriptions: New cefadroxil 500 mg capsule 500 mg PO BID 10 Days Qty: 20 0RF tramadol 50 mg tablet 50 mg PO Q6H PRN (Reason: pain) Qty: 30 0RF Continued amoxicillin 500 mg tablet 2,000 mg PO ONCE Qty: 4 3RF Rx Instructions: 4 tabs 1 hour prior to procedure levothyroxine 100 mcg tablet 100 mcg PO DAILY Qty: 90 3RF aspirin [Adult Low Dose Aspirin] 81 mg tablet,delayed release (DR/EC) 81 mg PO QAM cyanocobalamin (vitamin B-12) 1,000 mcg Tablet 1,000 mcg PO QAM folic acid 400 mcg Tablet 0.4 mg PO QAM ascorbic acid (vitamin C) [Vitamin C] 500 mg Capsule, Extended Release 500 mg PO QAM cholecalciferol (vitamin D3) [Vitamin D3] 2,000 unit Tablet 2,000 unit PO QAM calcium carbonate 300 mg (750 mg) Tablet,Chewable 300 mg PO QAM magnesium 500 mg Tablet 500 mg PO QAM triamterene-hydrochlorothiazid 37.5-25 mg tablet 1 tab PO QAM tamoxifen 20 mg tablet 20 mg PO QPM Discharge Orders: Discharge Order (Routine); Ordered 01/23/24 Ordered By: Bharath Sneed Admission Data Admit Date/Time: 01/22/24 10:01 Attending Provider: Bharath Sneed Admit Provider: Bharath Sneed Primary Care Provider: Christian Mehta
[2024-01-23 07:21] VITALS: BP 110/61; PULSE 64; RESP 16; TEMP 98.1; O2SAT 95
[2024-01-23] MEDS: MULTIVITAMIN TAB PO SCH (07:42)
[2024-01-23] MEDS: dexAMETHasone 4 MG TAB PO SCH (07:42)
[2024-01-23] MEDS: ASPIRIN 81 MG ECTAB PO SCH (07:42)
[2024-01-23] MEDS: TRIAMTERENE/HCTZ 37.5/25MG TAB PO SCH (07:42)
== END 2024-01-23 11:04 | disposition home or self-care (01) ==
LOC: 3E 06:22 → ASU 06:22